=== PATIENT | male | born 1945 | race Caucasian/White ===

== ENCOUNTER 2017-02-04 18:03 | Emergency (ER) | payer MEDICARE, BC ==
[2017-02-04 18:26] VITALS: BP 141/91
--- NOTE | 2017-02-04 18:53 | EDM.PDOC ---
ED HPI GENERAL MEDICAL PROBLEM - General Chief Complaint: Skin Complaint Stated Complaint: FISH HOOK Time Seen by Provider: 02/04/17 18:17 Source of Information: Reports: Patient, RN Notes Reviewed History Limitations: Reports: No Limitations - History of Present Illness INITIAL COMMENTS - FREE TEXT/NARRATIVE: 71-year-old gentleman presents emergency department today with a fistula to digit #2 on his right hand this occurred just prior to presentation no functional complaints - Related Data Allergies Allergy/AdvReac Type Severity Reaction Status Date / Time No Known Allergies Allergy Verified 02/04/17 18:25 Home Meds: Home Meds Aspirin 162 mg PO DAILY 02/04/17 [History] Cholecalciferol (Vitamin D3) [Vitamin D3] 2,000 unit PO DAILY 02/04/17 [History] Lisinopril 5 mg PO DAILY 02/04/17 [History] Omeprazole 20 mg PO DAILY 02/04/17 [History] Phenytoin Sodium Extended 300 mg PO DAILY 02/04/17 [History] Sertraline [Zoloft] 25 mg PO DAILY 02/04/17 [History] atorvaSTATin [Lipitor] 10 mg PO BEDTIME 02/04/17 [History] Past Medical History Cardiovascular History: Reports: Hypertension Respiratory History: Reports: COPD - Infectious Disease History Infectious Disease History: Reports: Chicken Pox, Measles, Mumps - Past Surgical History Cardiovascular Surgical History: Reports: Vascular Surgery Neurological Surgical History: Reports: Other (See Below) Other Neurological Surgeries/Procedures: brain surgery Social & Family History - Tobacco Use Smoking Status *Q: Never Smoker - Caffeine Use Caffeine Use: Reports: Coffee - Recreational Drug Use Recreational Drug Use: No ED ROS GENERAL - Review of Systems Review Of Systems: See Below Skin: Reports: Wound ED EXAM, SKIN/RASH Exam: See Below Text/Narrative:: Distal aspect of digit #2 along the medial side of the finger next to the nail bed there is no difficulty range of motion radial pulses +2 ED SKIN PROCEDURES - Foreign Body Removal Indication:: [place] index finger right hand Consent Obtained:: Patient Performing Doctor:: OfficerRubio Anesthesia Type: Other (see below) (Digital) Findings:: Fisherman string technique was used to remove a single barbed fishhook from the describes site one pole no complications noted Complications:: No Course - Vital Signs Last Recorded V/S: Last Vital Signs Temp 97.7 F 02/04/17 18:25 Pulse 66 08/06/17 18:25 Resp 16 02/04/17 18:25 BP 141/91 H 02/04/17 18:25 Pulse Ox 96 02/04/17 18:25 - Orders/Labs/Meds Orders: Active Orders 24 hr Category Date Time Status Vaccines to be Administered [RC] PER UNIT ROUTINE Care 02/04/17 19:12 Active Meds: Medications Discontinued Medications Generic Name Dose Route Start Last Admin Trade Name Denise PRN Reason Stop Dose Admin Diphtheria/Tetanus/Acell Pertussis 0.5 ml 02/04/17 19:12 02/04/17 19:17 Adacel IM 02/04/17 19:13 0.5 ml .ONCE ONE Administration Lidocaine HCl 5 ml 02/04/17 18:36 02/04/17 18:50 Xylocaine-Mpf 1% INJECT 02/04/17 18:37 5 ml ONETIME ONE Administration Departure - Departure Time of Disposition: 19:22 Disposition: Home, Self-Care 01 Condition: Good Clinical Impression: Fish hook injury of right index finger Qualifiers: Encounter type: initial encounter Qualified Code(s): S69.91XA - Unspecified injury of right wrist, hand and finger(s), initial encounter - Discharge Information Forms: ED Department Discharge Additional Instructions: Follow-up with primary care as needed - My Orders Last 24 Hours: My Active Orders 02/04/17 19:12 Vaccines to be Administered [RC] PER UNIT ROUTINE - Assessment/Plan Last 24 Hours: My Active Orders 02/04/17 19:12 Vaccines to be Administered [RC] PER UNIT ROUTINE Plan: Assessment Acuity = acute Site and laterality = fish hook digit #2 right hand Etiology = single minal Manifestations = none Location of injury = Home Lab values = none Plan Tetanus was updated today, follow-up with primary care as needed Patient was in agreement with the plan all questions were answered, they were instructed to return to the emergency department or call for worsening symptoms. This note was dictated using [employer] voice recognition software please call with any questions.
[2017-02-04] MEDS ORDERED: Diphtheria,Pertussis(Acell),Tetanus Vaccine 0.5 ML SDV IM ONE (19:12)
== END 2017-02-04 19:29 | disposition home or self-care (01) ==
LOC: JP.ED 18:03
DX: S60.450A Superficial foreign body of right index finger, initial encounter (principal); I10 Essential (primary) hypertension; J44.9 Chronic obstructive pulmonary disease, unspecified; Z23 Encounter for immunization; Z79.82 Long term (current) use of aspirin; Z79.899 Other long term (current) drug therapy; Z98.890 Other specified postprocedural states; W45.8XXA Other foreign body or object entering through skin, initial encounter
CPT/HCPCS: 90471; 90715; 99283; 99283-25